=== PATIENT | female | born 1990 | race Caucasian/White ===

== ENCOUNTER 2017-01-14 15:20 | Emergency (ER) ==
[2017-01-14 15:27] VITALS: BP 137/90; TEMP 97.6; BMI 29.2
--- NOTE | 2017-01-14 15:51 | ED.PDOC ---
General ED Provider: Dr. BETSY HERNANDEZ JR Chief Complaint: Tooth Problem Stated Complaint: states she was eating a piece of beef jerky and top left molar broke, feels like food still stuck in it and making whole face hurt. [ End ]45 MINUTES 97.6 79 16 96% 137/90 1010. APPENDIX, X 2. ANX Time Seen by Physician: 15:50 Mode of Arrival: Walk-In Information Source: Patient Exam Limitations: No limitations Primary Care Provider: ABHAY ROMANO Nursing and Triage Documentation Reviewed and Agree: No Review of Systems - Review Of Systems Constitutional: Reports: Malaise Eyes: Reports: No symptoms Ears, Nose, Mouth, Throat: Reports: Mouth pain Respiratory: Reports: No symptoms Cardiac: Reports: No symptoms GI: Reports: No symptoms : Reports: No symptoms Musculoskeletal: Reports: No symptoms Skin: Reports: No symptoms Neurological: Reports: No symptoms Endocrine: Reports: No symptoms Hematologic/Lymphatic: Reports: No symptoms All Other Systems: Other Past Medical History - Past Medical History Endocrine: Reports: None Cardiovascular: Reports: None Respiratory: Reports: None Hematological: Reports: None Gastrointestinal: Reports: None Genitourinary: Reports: None Neuro/Psych: Reports: Anxiety Musculoskeletal: Reports: None Cancer: Reports: None Last Menstrual Period: last week - Surgical History General Surgical History: Reports: None, , Appendectomy - Family History Family History: Reports: Unknown - Social History Smoking Status: Former smoker Hx Substance Use: No Alcohol Screening: None Physical Exam - Physical Exam Appearance: Ill-appearing Ill-appearing: Mild Pain Distress: Moderate Eyes: VIVIANA, EOMI, Conjunctiva clear ENT: Erythema (left upper first molar with deep cavity no visible foreign matter tender gum erythema present jaw slightly tender no LAD) Critical Care Note - Critical Care Note Total Time (mins): 0 Course - Course Vital Signs: Temp Pulse Resp BP Pulse Ox 01/14/17 15:20 97.6 F 79 16 137/90 96 Departure - Departure Time of Disposition: 16:05 Disposition: HOME SELF-CARE Discharge Problem: Toothache, Dental caries Instructions: Toothache (ED), Acute Dental Trauma (ED) Condition: Fair Pt referred to PMD for follow-up: Yes Additional Instructions: Aleve for dental pain 2 twice a day [place] for pain not relieved antibiotic until gone- [place] [facility] follow up with dentist this week Prescriptions: Hydrocodone Bit/Acetaminophen [[place] 5-325] 1 - 2 tab PO Q6HR PRN #12 tablet PRN Reason: pain Naproxen [Naprosyn] 500 mg PO Q12HR PRN #30 tablet PRN Reason: PAIN Penicillin V Potassium 500 mg PO QID #28 tablet Allergies/Adverse Reactions: Allergies latex Adverse Reaction (Verified 01/14/17 15:23) Home Medications: Ambulatory Orders Hydrocodone Bit/Acetaminophen [[place] 5-325] 1 - 2 tab PO Q6HR PRN #12 tablet 11/27 Naproxen [Naprosyn] 500 mg PO Q12HR PRN #30 tablet 01/14/17 Penicillin V Potassium 500 mg PO QID #28 tablet 01/14/17
[2017-01-14] MEDS ORDERED: NORCO 5-325 PO STA (16:01)
== END 2017-01-14 16:18 | disposition home or self-care (01) ==
LOC: ED 15:20
DX: S02.5XXA Fracture of tooth (traumatic), initial encounter for closed fracture (principal); K08.89 Other specified disorders of teeth and supporting structures; K02.7 Dental root caries
CPT/HCPCS: 99282

== ENCOUNTER 2017-01-15 15:40 | Outpatient (CLI) ==
[2017-01-14 15:27] VITALS: BMI 29.2
[2017-01-15 18:02] LABS: ALBUMIN/GLOBULIN RATIO 1.25; BILIRUBIN,TOTAL 0.24 mg/dL (0.00-1.20); BUN/CREATININE RATIO 10.12; CALCIUM 9.3 mg/dL (8.2-10.2); CHOL/HDL RATIO 6.6 (4.5-5.5); CREATININE 0.79 mg/dL (0.60-1.30); TOTAL PROTEIN 7.2 g/dL (6.4-8.2)
== END 2017-01-15 15:41 | disposition home or self-care (01) ==
LOC: LAB 15:40
PROVIDERS: ATTEND Nurse Practitioner Family
DX: E75.6 Lipid storage disorder, unspecified (principal); F31.9 Bipolar disorder, unspecified; F32.9 Major depressive disorder, single episode, unspecified
CPT/HCPCS: 36415; 80053; 80061

== ENCOUNTER 2017-02-16 18:08 | Emergency (ER) ==
[2017-02-16 18:17] VITALS: BP 108/72; TEMP 98.4; BMI 29.4
--- NOTE | 2017-02-16 18:26 | ED.PDOC ---
General ED Provider: Dr. BETSY HERNANDEZ JR Chief Complaint: Wound Check Stated Complaint: two lesions one on left volar forearm tewder 5mm. one on right medial thigh 2cm tender nodule wihtout fluctuance with surrounding ecchymoses(has squeezed matter out of it Time Seen by Physician: 18:25 Mode of Arrival: Walk-In Information Source: Patient Exam Limitations: No limitations Primary Care Provider: ABHAY ROMANO Nursing and Triage Documentation Reviewed and Agree: No Review of Systems - Review Of Systems Constitutional: Reports: No symptoms Eyes: Reports: No symptoms Ears, Nose, Mouth, Throat: Reports: No symptoms Respiratory: Reports: No symptoms Cardiac: Reports: No symptoms GI: Reports: No symptoms : Reports: No symptoms Musculoskeletal: Reports: No symptoms Skin: Reports: Lesions, Lumps Neurological: Reports: No symptoms Endocrine: Reports: No symptoms Hematologic/Lymphatic: Reports: No symptoms All Other Systems: Other Past Medical History - Past Medical History Endocrine: Reports: None Cardiovascular: Reports: None Respiratory: Reports: None Hematological: Reports: None Gastrointestinal: Reports: None Genitourinary: Reports: None Neuro/Psych: Reports: Anxiety Musculoskeletal: Reports: None Cancer: Reports: None Last Menstrual Period: 1 week - Surgical History General Surgical History: Reports: None, , Appendectomy - Family History Family History: Reports: Unknown - Social History Smoking Status: Current every day smoker, Light tobacco smoker Hx Substance Use: No Alcohol Screening: None Physical Exam - Physical Exam Appearance: Well-appearing Pain Distress: Mild Skin: Warm, Dry, Normal color (lesions as noted tender right leg with 1cm firm subcut nodule no fluctuance on palpation) Neurological: Sensation intact, Motor intact, Reflexes intact, Cranial nerves intact, Alert, Oriented Psychiatric: Affect appropriate, Mood appropriate Critical Care Note - Critical Care Note Total Time (mins): 0 Course - Course Vital Signs: Temp Pulse Resp BP Pulse Ox 02/16/17 18:08 98.4 F 79 20 108/72 97 Departure - Departure Time of Disposition: 18:25 Disposition: HOME SELF-CARE Discharge Problem: Cellulitis and abscess of upper arm and forearm Cellulitis Qualifiers: Site of cellulitis: extremity Site of cellulitis of extremity: lower extremity Laterality: right Qualifier Code: (L03.115) Cellulitis of right lower limb Instructions: Cellulitis (ED) Condition: Good Pt referred to PMD for follow-up: Yes Additional Instructions: antibiotic until gone recheck if not improving within 2-3 days warm soaks 4-6 times a day Prescriptions: Sulfamethoxazole/Trimethoprim [Bactrim Ds Tablet] 1 tab PO Q12HR #20 tablet Allergies/Adverse Reactions: Allergies latex Adverse Reaction (Verified 02/16/17 18:17) Home Medications: Ambulatory Orders Sulfamethoxazole/Trimethoprim [Bactrim Ds Tablet] 1 tab PO Q12HR #20 tablet 02/26
== END 2017-02-16 18:40 | disposition home or self-care (01) ==
LOC: ED 18:08
DX: L03.115 Cellulitis of right lower limb (principal); L02.414 Cutaneous abscess of left upper limb; L03.114 Cellulitis of left upper limb; F17.210 Nicotine dependence, cigarettes, uncomplicated
CPT/HCPCS: 99282

== ENCOUNTER 2017-02-17 23:51 | Emergency (ER) ==
[2017-02-18 00:06] VITALS: BP 128/87; TEMP 99.9; BMI 29.5
[2017-02-18] MEDS ORDERED: LIDOCAINE 1 % AMP 5 ML (SUTURES) SUBCUT STA (00:20)
[2017-02-18] MEDS ORDERED: CLEOCIN 600 MG in SODIUM CHLORIDE 100 ML IV STA (00:22)
[2017-02-18] MEDS ORDERED: CLEOCIN ONE ×2 (00:25→00:45)
[2017-02-18] MEDS ORDERED: MORPHINE 2 MG/ML SYRINGE IVP STA (00:37)
[2017-02-18] MEDS ORDERED: ZOFRAN 4 MG/2 ML IVP STA (00:37)
--- NOTE | 2017-02-18 00:40 | ED.PDOC ---
General ED Provider: Dr. ALENA LI-ER Chief Complaint: Cellulitis Stated Complaint: marlee got this lump on my forearm--i have a history of mrsa Time Seen by Physician: 23:55 Mode of Arrival: Walk-In Information Source: Patient Exam Limitations: No limitations Primary Care Provider: ABHAY ROMANO Nursing and Triage Documentation Reviewed and Agree: Yes Skin Complaint Exam - Skin/Soft Tissue Complaint/Exam Onset/Duration: 2 dasy Symptoms Are: Still present Timing: Constant Initial Severity: Mild Current Severity: Moderate Location: left forearm Character: Reports: Redness, Swelling, Raised, Painful Aggravating: Reports: None Alleviating: Reports: None Associated Signs and Symptoms: Reports: Tenderness, Red streaks. 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 Related Surgical History: Reports: None Recent Exposure to Others w/Similar Symptoms: No Skin Findings: Present: Erythema, Induration Joint Tenderness Present: No Differential Diagnoses: Abscess Review of Systems - Review Of Systems Constitutional: Reports: No symptoms Eyes: Reports: No symptoms Ears, Nose, Mouth, Throat: Reports: No symptoms Respiratory: Reports: No symptoms Cardiac: Reports: No symptoms GI: Reports: No symptoms : Reports: No symptoms Musculoskeletal: Reports: No symptoms Skin: Reports: Lumps Neurological: Reports: No symptoms Endocrine: Reports: No symptoms Hematologic/Lymphatic: Reports: No symptoms All Other Systems: Reviewed and Negative Past Medical History - Past Medical History Previously Healthy: Yes Endocrine: Reports: None Cardiovascular: Reports: None Respiratory: Reports: None Hematological: Reports: None Gastrointestinal: Reports: None Genitourinary: Reports: None Neuro/Psych: Reports: Anxiety Musculoskeletal: Reports: None Cancer: Reports: None Last Menstrual Period: 2 weeks ago - Surgical History General Surgical History: Reports: None, , Appendectomy - Family History Family History: Reports: Unknown - Social History Smoking Status: Current every day smoker, Light tobacco smoker Hx Substance Use: No Alcohol Screening: None - Immunizations Tetanus Shot up to Date: Yes Physical Exam - Physical Exam Appearance: Well-appearing, No pain distress, Well-nourished Pain Distress: Mild Eyes: VIVIANA ENT: Ears normal, Nose normal, Oropharynx normal Neck: Supple Respiratory: Airway patent Cardiovascular: RRR GI/: Soft Musculoskeletal: Normal strength, ROM intact, No edema, No calf tenderness Skin: Warm, Dry, Normal color Neurological: Sensation intact, Motor intact, Reflexes intact, Cranial nerves intact, Alert, Oriented Psychiatric: Affect appropriate, Mood appropriate Procedures - Incision and Drainage Site: left forearm Instrument Used: 11 Blade I & D Procedure: Yes: Betadine Prep, Sterile dressing applied, Packing placed Lidocaine Used: Yes Type of Drainage: Present: Pus, Blood Irrigated: No Progress: using sterile technique this 2cm area of induration and erythyema was opened using foreceps after 1cm superficial incision was placed over the lesion..2cc of pustular drainage was expressed and 4cc of iodoform gauze packing was placed- -she tolerated it well.. Re-Evaluation - Re-Evaluation Time of Re-Evaluation: 00:44 Status: Improved Vital Signs Stable: Yes Pain Level: 1 Appearance: NAD Lungs: Clear Skin: Warm and Dry Neuro: Alert and Oriented X3 CV: RRR Critical Care Note - Critical Care Note Total Time (mins): 0 Course - Course Orders, Labs, Meds: Orders Category Date Time Status ED IV/MEDIPORT/POWERPORT .ONCE EMERGENCY 02/18/17 00:22 Active 0.9 % Sodium Chloride [Saline Flush] MEDS 02/18/17 00:22 Ordered 1 syr IVF PRN PRN Clindamycin Phosphate Inj [Cleocin] MEDS 02/18/17 00:25 Discontinued 300 mg .ROUTE .STK-MED ONE Clindamycin Phosphate Inj [Cleocin] 600 mg MEDS 02/18/17 00:22 Active 0.9 % Sodium Chloride [Sodium Chloride] 100 ml IV ONCE Lidocaine HCl/Pf [Lidocaine 1 % Amp 5 ml (Sutures)] MEDS 02/18/17 00:20 Discontinued 5 ml SUBCUT ONCE STA Morphine Sulfate [Morphine 2 mg/ml Syringe] MEDS 02/18/17 00:37 Discontinued 2 mg IVP ONCE STA Ondansetron HCl/Pf [Zofran 4 mg/2 ml] MEDS 02/18/17 00:37 Discontinued 4 mg IVP ONCE STA Medications Generic Name Dose Route Start Last Admin Trade Name Freq PRN Reason Stop Dose Admin Clindamycin Phosphate 600 mg/ 104 mls @ 100 mls/hr 02/18/17 00:22 Sodium Chloride IV 02/18/17 01:24 ONCE STA Sodium Chloride 1 syr 02/18/17 00:22 Saline Flush IVF PRN PRN To flush IV Discontinued Medications Generic Name Dose Route Start Last Admin Trade Name Freq PRN Reason Stop Dose Admin Lidocaine HCl 5 ml 02/18/17 00:20 Lidocaine 1 % Amp 5 Ml (Sutures) SUBCUT 02/18/17 00:21 ONCE STA Morphine Sulfate 2 mg 02/18/17 00:37 Morphine 2 Mg/Ml Syringe IVP 02/18/17 00:38 ONCE STA Ondansetron HCl 4 mg 02/18/17 00:37 Zofran 4 Mg/2 Ml IVP 02/18/17 00:38 ONCE STA Vital Signs: Temp Pulse Resp BP Pulse Ox 02/17/17 23:51 99.9 F H 93 H 20 128/87 97 Departure - Departure Time of Disposition: 00:44 Disposition: HOME SELF-CARE Discharge Problem: Cellulitis and abscess of upper arm and forearm Instructions: Abscess (ED) Condition: Good Pt referred to PMD for follow-up: Yes Additional Instructions: norco 5mg q 4hrs prn pain #6---stop bactrim --clindamycin 150mg tid x 7days-- see me in the e.d. tonight to remove/advance the packing Allergies/Adverse Reactions: Allergies latex Adverse Reaction (Verified 02/18/17 00:06) Home Medications: Ambulatory Orders Sulfamethoxazole/Trimethoprim [Bactrim Ds Tablet] 1 tab PO Q12HR #20 tablet 02/26 Disposition Discussed With: Patient
== END 2017-02-18 02:10 | disposition home or self-care (01) ==
LOC: ED 23:51
DX: L02.414 Cutaneous abscess of left upper limb (principal); L03.114 Cellulitis of left upper limb; Z86.14 Personal history of Methicillin resistant Staphylococcus aureus infection; F17.210 Nicotine dependence, cigarettes, uncomplicated; Z98.890 Other specified postprocedural states; Z48.01 Encounter for change or removal of surgical wound dressing
CPT/HCPCS: 87070; 87186; 96365; 96375; 99282; 99283

== ENCOUNTER 2017-02-18 19:13 | Emergency (ER) ==
[2017-02-18 19:14] VITALS: BMI 29.5
[2017-02-18 19:21] VITALS: BP 120/77; TEMP 98.5
--- NOTE | 2017-02-18 19:30 | ED.PDOC ---
General ED Provider: Dr. ALENA LI-ER Chief Complaint: Wound Check Stated Complaint: i had an abscess drained last night=---it feels better now Time Seen by Physician: 19:28 Mode of Arrival: Walk-In Information Source: Patient, Family Exam Limitations: No limitations Primary Care Provider: ABHAY ROMANO Nursing and Triage Documentation Reviewed and Agree: Yes Skin Complaint Exam - Skin/Soft Tissue Complaint/Exam Onset/Duration: 3 days Symptoms Are: Still present Timing: Constant Initial Severity: Mild Current Severity: Mild Location: left forearm Character: Reports: Redness, Swelling, Raised, Painful Aggravating: Reports: Touch Alleviating: Reports: None Associated Signs and Symptoms: Reports: Drainage, Tenderness. 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 Related Surgical History: Reports: None Recent Exposure to Others w/Similar Symptoms: No Skin Findings: Present: Induration, Fluctuant mass Joint Tenderness Present: No Differential Diagnoses: Abscess Review of Systems - Review Of Systems Constitutional: Reports: No symptoms Eyes: Reports: No symptoms Ears, Nose, Mouth, Throat: Reports: No symptoms Respiratory: Reports: No symptoms Cardiac: Reports: No symptoms GI: Reports: No symptoms : Reports: No symptoms Musculoskeletal: Reports: No symptoms Skin: Reports: Lumps Neurological: Reports: No symptoms Endocrine: Reports: No symptoms Hematologic/Lymphatic: Reports: No symptoms All Other Systems: Reviewed and Negative Past Medical History - Past Medical History Previously Healthy: Yes Endocrine: Reports: None Cardiovascular: Reports: None Respiratory: Reports: None Hematological: Reports: None Gastrointestinal: Reports: None Genitourinary: Reports: None Neuro/Psych: Reports: Anxiety Musculoskeletal: Reports: None Cancer: Reports: None Last Menstrual Period: 2 weeks - Surgical History General Surgical History: Reports: None, , Appendectomy - Family History Family History: Reports: Unknown - Social History Smoking Status: Current every day smoker, Light tobacco smoker Hx Substance Use: No Alcohol Screening: None - Immunizations Tetanus Shot up to Date: Yes Physical Exam - Physical Exam Appearance: Well-appearing, No pain distress, Well-nourished Eyes: VIVIANA, EOMI, Conjunctiva clear ENT: Ears normal, Nose normal, Oropharynx normal Neck: Supple Respiratory: Airway patent, Breath sounds clear, Breath sounds equal, Respirations nonlabored Cardiovascular: RRR, Pulses normal, No rub, No murmur GI/: Soft, Nontender, No masses, Bowel sounds normal, No Organomegaly Musculoskeletal: Normal strength, ROM intact, No edema, No calf tenderness Skin: Warm, Dry, Normal color Neurological: Sensation intact, Motor intact, Reflexes intact, Cranial nerves intact, Alert, Oriented Psychiatric: Affect appropriate, Mood appropriate Procedures - Incision and Drainage Site: left foream Type of Drainage: Present: Pus Progress: we removed the packing today--some pustular drainage was expressed--the wound was covered with sterile dressing Critical Care Note - Critical Care Note Total Time (mins): 0 Course - Course Vital Signs: Temp Pulse Resp BP Pulse Ox 02/18/17 19:15 98.5 F 77 20 120/77 96 Departure - Departure Time of Disposition: 19:30 Disposition: HOME SELF-CARE Discharge Problem: Cellulitis and abscess of upper arm and forearm Instructions: Abscess (ED), Wound Infection (ED), Acute Wounds (ED) Condition: Good Pt referred to PMD for follow-up: Yes Additional Instructions: continue clindamycin--wash wound twice daily with soap and water and cover with antb ointment--cover as long as draining Allergies/Adverse Reactions: Allergies latex Adverse Reaction (Verified 02/18/17 19:15) Home Medications: Ambulatory Orders Hydrocodone Bit/Acetaminophen [[place] 5-325] 5 - 325 mg PO Q4H PRN 02/18/17 Disposition Discussed With: Patient, Family
== END 2017-02-18 19:41 | disposition home or self-care (01) ==
LOC: ED 19:13
DX: L02.414 Cutaneous abscess of left upper limb (principal); L03.114 Cellulitis of left upper limb; Z86.14 Personal history of Methicillin resistant Staphylococcus aureus infection; F17.210 Nicotine dependence, cigarettes, uncomplicated; Z98.890 Other specified postprocedural states; Z48.01 Encounter for change or removal of surgical wound dressing
CPT/HCPCS: 99282

== ENCOUNTER 2017-03-05 11:13 | Outpatient (CLI) ==
[2017-03-05 11:36] LABS: BASOPHILS % (AUTO) 0.2 % (0.0-3.0); EOSINOPHILS % (AUTO) 0.4 % (0.0-7.0); HEMATOCRIT 42.7 % (37.0-47.0); HEMOGLOBIN 14.5 g/dl (12.0-16.0); IMMATURE GRANULOCYTE % (AUTO) 0.4 % (0.0-5.0); LYMPHOCYTES % (AUTO) 24.4 (10.0-50.0); MEAN CORPUSCULAR HEMOGLOBIN 29.5 pg (27.0-31.0); MONOCYTES # (AUTO) 0.5 K/uL (0.4-2.0); MONOCYTES % (AUTO) 6.7 (0-10); NEUTROPHILS # (AUTO) 5.5 K/ul (2.0-6.9); NEUTROPHILS % (AUTO) 67.9; PLATELET COUNT 231 10^3/uL (140-440); RED BLOOD COUNT 4.91 10^6/ul (4.20-5.40); WHITE BLOOD COUNT 8.06 K/ul (4.6-10.2)
[2017-03-05 11:39] LABS: BILIRUBIN,URINE Negative (NEGATIVE); KETONES,URINE Negative (NEGATIVE); LEUKOCYTE ESTERASE ,URINE 1+ (NEGATIVE); NITRITE,URINE Positive (NEGATIVE); PROTEIN,URINE Negative (NEGATIVE); URINE, BLOOD Negative (NEGATIVE)
[2017-03-05 11:52] LABS: ADD URINE MICROSCOPIC YES
[2017-03-05 11:57] LABS: BACTERIA,URINE 2+ (NOT PRESENT)
[2017-03-05 12:06] LABS: COCAIN SCREEN,URINE POSITIVE (NEGATIVE)
[2017-03-05 12:18] LABS: ALBUMIN 3.8 g/dL (3.4-5.0); ALBUMIN/GLOBULIN RATIO 1.03; ANION GAP 14.9; BILIRUBIN,TOTAL 0.42 mg/dL (0.00-1.20); BUN/CREATININE RATIO 7.22; CALCIUM 9.3 mg/dL (8.2-10.2); CHOL/HDL RATIO 4.9 (4.5-5.5); CREATININE 0.83 mg/dL (0.60-1.30); POTASSIUM 3.9 mmol/L (3.5-5.10); TOTAL PROTEIN 7.5 g/dL (6.4-8.2)
== END 2017-03-05 11:14 | disposition home or self-care (01) ==
LOC: LAB 11:13
PROVIDERS: ATTEND Family Medicine
DX: Z00.00 Encounter for general adult medical examination without abnormal findings (principal); E78.00 Pure hypercholesterolemia, unspecified; E78.1 Pure hyperglyceridemia; R74.0 Nonspecific elevation of levels of transaminase and lactic acid dehydrogenase [LDH]; Z87.440 Personal history of urinary (tract) infections
CPT/HCPCS: 36415; 80053; 80061; 80306; 81001; 84439; 84443; 85025

== ENCOUNTER 2017-05-18 22:10 | Emergency (ER) ==
[2017-05-18] MEDS ORDERED: ZOFRAN 4 MG/2 ML IM STA (22:15)
[2017-05-18] MEDS ORDERED: DILAUDID 2 MG/ML SYRINGE IM STA (22:15)
[2017-05-18 22:24] VITALS: BP 116/75; TEMP 98.6; BMI 29.3
[2017-05-18 22:29] LABS: BILIRUBIN,URINE Negative (NEGATIVE); KETONES,URINE Negative (NEGATIVE); LEUKOCYTE ESTERASE ,URINE Negative (NEGATIVE); NITRITE,URINE Negative (NEGATIVE); PH,URINE 6.5 (5-9); PROTEIN,URINE Negative (NEGATIVE); URINE, BLOOD Negative (NEGATIVE)
[2017-05-18 22:32] LABS: ADD URINE MICROSCOPIC NO; URINE PREGNANCY INTERNAL QC INTERNAL QC VALID
[2017-05-18 22:42] LABS: BASOPHILS % (AUTO) 0.2 % (0.0-3.0); EOSINOPHILS # (AUTO) 0.1 K/ul (0.0-0.7); EOSINOPHILS % (AUTO) 0.6 % (0.0-7.0); HEMATOCRIT 39.5 % (37.0-47.0); HEMOGLOBIN 13.8 g/dl (12.0-16.0); IMMATURE GRANULOCYTE % (AUTO) 0.2 % (0.0-5.0); LYMPHOCYTES # (AUTO) 2.8 K/uL (0.60-3.4); MEAN CORPUSCULAR HEMOGLOBIN 30.9 pg (27.0-31.0); MEAN CORPUSCULAR HGB CONC 34.9 (31.8-35.4); MEAN CORPUSCULAR VOLUME 88.4 fl (81.0-99.0); MONOCYTES # (AUTO) 0.8 K/uL (0.4-2.0); MONOCYTES % (AUTO) 7.2 (0-10); NEUTROPHILS # (AUTO) 7.2 K/ul (2.0-6.9); NEUTROPHILS % (AUTO) 65.8; PLATELET COUNT 216 10^3/uL (140-440); RED BLOOD COUNT 4.47 10^6/ul (4.20-5.40); WHITE BLOOD COUNT 10.85 K/ul (4.6-10.2)
[2017-05-18 23:01] LABS: ALBUMIN 3.7 g/dL (3.4-5.0); ALBUMIN/GLOBULIN RATIO 0.97; ANION GAP 13.7; BILIRUBIN,TOTAL 0.29 mg/dL (0.00-1.20); BUN/CREATININE RATIO 14.28; CALCIUM 9.6 mg/dL (8.2-10.2); CREATININE 0.84 mg/dL (0.60-1.30); POTASSIUM 3.7 mmol/L (3.5-5.10); TOTAL PROTEIN 7.5 g/dL (6.4-8.2)
[2017-05-18 23:16] LABS: ERYTHROCYTE SEDIMENTATION RATE 11 mm/hr (0-20); ESR INTERNAL QC INTERNAL QC VALID
--- NOTE | 2017-05-18 23:33 | CT ---
EXAM: CT of the abdomen and pelvis without contrast. HISTORY: Right upper quadrant pain. Surgical history includes appendectomy. PROCEDURE: Contiguous axial CT images of the abdomen and pelvis without contrast with coronal and sa gittal reformats. FINDINGS: The liver, gallbladder, pancreas, spleen and adrenal glands are normal in appearance. The re are multiple nonobstructive calcifications in both kidneys measuring up to 0.3 cm. No hydronephro sis. The ureters are incompletely visualized. The abdominal aorta is normal in appearance. There i s diverticulosis of the colon with no evidence of diverticulitis. No free air in the abdomen or pelv is. The bladder is adequately filled with no abnormality identified. The uterus is unremarkable. Th ere is minimal free fluid in the cul-de-sac. The bones and soft tissues are unremarkable. Impression: Nonobstructive bilateral nephrolithiasis as described. Minimal free fluid in the cul-de-sac. Diverticulosis of the colon with no evidence of diverticulitis.
--- NOTE | 2017-05-18 23:40 | ED.PDOC ---
General ED Provider: Dr. ALENA LI-ER Chief Complaint: Abdominal Pain Stated Complaint: im hurting and i think its my gb--i ate some fatty food and this started Time Seen by Physician: 22:30 Mode of Arrival: Walk-In Information Source: Patient Exam Limitations: No limitations Primary Care Provider: JOSE DAVID BREAUX Nursing and Triage Documentation Reviewed and Agree: Yes GI Complaint Exam - Abdominal Pain Complaint/Exam Onset: Gradual Duration: several hours Symptoms Are: Still present Timing: Constant Initial Severity: Mild Current Severity: Mild Location of Pain: Discrete, RUQ Radiates To: Reports: Back Character: Reports: Dull, Aching, Cramping Aggravating: Reports: Food Alleviating: Reports: Spontaneous resolution Associated Signs and Symptoms: Reports: Nausea. Denies: Diaphoresis, Fever, Cough, Chest pain, Dizziness, Back pain, Constipation, Blood in stool, Dysuria, Urinary frequency, Decreased urine output, Decreased appetite, Vaginal bleeding , Vaginal discharge, Vomiting, Diarrhea, Sore throat, Decreased activity AAA Risk Factors: Reports: None Cardiac Risk Factors: Reports: None Ovarian Torsion Risk Factors: Reports: Reproductive age Surgical Obstruction Risk Factors: Reports: None Related Surgical History: Reports: Appendectomy Patient Rh Status: Unknown Abdominal Findings: Present: None Differential Diagnoses: Constipation, Pancreatitis, GB, PUD, UTI Review of Systems - Review Of Systems Constitutional: Reports: No symptoms Eyes: Reports: Decreased acuity Ears, Nose, Mouth, Throat: Reports: No symptoms Respiratory: Reports: No symptoms Cardiac: Reports: No symptoms GI: Reports: Abdominal pain, Nausea : Reports: No symptoms Musculoskeletal: Reports: No symptoms Skin: Reports: No symptoms Neurological: Reports: No symptoms Endocrine: Reports: No symptoms Hematologic/Lymphatic: Reports: No symptoms All Other Systems: Reviewed and Negative Past Medical History - Past Medical History Previously Healthy: Yes Endocrine: Reports: None Cardiovascular: Reports: None Respiratory: Reports: None Hematological: Reports: None Gastrointestinal: Reports: None Genitourinary: Reports: None Neuro/Psych: Reports: Anxiety Musculoskeletal: Reports: None Cancer: Reports: None Last Menstrual Period: 2 WEEKS - Surgical History General Surgical History: Reports: None, , Appendectomy - Family History Family History: Reports: Unknown - Social History Smoking Status: Current every day smoker Hx Substance Use: No Alcohol Screening: None Lives: With family - Immunizations Tetanus Shot up to Date: Yes Physical Exam - Physical Exam Appearance: Well-appearing, No pain distress, Well-nourished Eyes: VIVIANA, EOMI, Conjunctiva clear ENT: Ears normal, Nose normal, Oropharynx normal Neck: Supple Respiratory: Airway patent Cardiovascular: RRR, Pulses normal, No rub, No murmur GI/: Soft, No masses, Bowel sounds normal, No Organomegaly, Tender Musculoskeletal: Normal strength Skin: Warm Neurological: Sensation intact, Motor intact, Reflexes intact, Cranial nerves intact, Alert, Oriented Psychiatric: Affect appropriate, Mood appropriate Interpretation - Radiology Interpretation Radiology Interpretation By: Radiologist Radiology Results: Negative Exam Interpreted: CT Scan Re-Evaluation - Re-Evaluation Time of Re-Evaluation: 23:41 Status: Improved Vital Signs Stable: Yes Pain Level: 1 Appearance: NAD Lungs: Clear Skin: Warm and Dry Neuro: Alert and Oriented X3 CV: RRR Critical Care Note - Critical Care Note Total Time (mins): 0 Course - Course Hematology/Chemistry: 05/18/17 22:30 05/18/17 22:30 Orders, Labs, Meds: Lab Review 05/18/17 05/18/17 05/18/17 22:20 22:20 22:30 WBC 10.85 H RBC 4.47 Hgb 13.8 Hct 39.5 MCV 88.4 MCH 30.9 MCHC 34.9 RDW Coeff of Jim 12.7 Plt Count 216 Immature Gran % (Auto) 0.2 Neut % (Auto) 65.8 Lymph % (Auto) 26.0 [place] % (Auto) 7.2 Eos % (Auto) 0.6 Baso % (Auto) 0.2 Immature Gran # (Auto) 0.0 Neut # 7.2 H Lymph # 2.8 [place] # 0.8 Eos # 0.1 Baso # 0.0 ESR 11 Sodium Potassium Chloride Carbon Dioxide Anion Gap BUN Creatinine Estimated GFR (MDRD) BUN/Creatinine Ratio Glucose Calcium Total Bilirubin AST ALT Alkaline Phosphatase Total Protein Albumin Globulin Albumin/Globulin Ratio Amylase Lipase Urine Color Yellow Urine Clarity Slightly Urine pH 6.5 Ur Specific [place] 1.025 Urine Protein Negative Urine Glucose (UA) Negative Urine Ketones Negative Urine Blood Negative Urine Nitrite Negative Urine Bilirubin Negative Urine Urobilinogen 0.2 Ur Leukocyte Esterase Negative Urine Test Negative 05/18/17 22:30 WBC RBC Hgb Hct MCV MCH MCHC RDW Coeff of Jim Plt Count Immature Gran % (Auto) Neut % (Auto) Lymph % (Auto) [place] % (Auto) Eos % (Auto) Baso % (Auto) Immature Gran # (Auto) Neut # Lymph # [place] # Eos # Baso # ESR Sodium 137 Potassium 3.7 Chloride 102 Carbon Dioxide 25 Anion Gap 13.7 BUN 12 Creatinine 0.84 Estimated GFR (MDRD) 80.00 BUN/Creatinine Ratio 14.28 Glucose 97 Calcium 9.6 Total Bilirubin 0.29 AST 23 ALT 24 Alkaline Phosphatase 98 Total Protein 7.5 Albumin 3.7 Globulin 3.8 Albumin/Globulin Ratio 0.97 Amylase 76 Lipase 29 Urine Color Urine Clarity Urine pH Ur Specific [place] Urine Protein Urine Glucose (UA) Urine Ketones Urine Blood Urine Nitrite Urine Bilirubin Urine Urobilinogen Ur Leukocyte Esterase Urine Test Orders Category Date Time Status AMYLASE Stat LAB 05/18/17 22:30 Completed CBC W/ AUTO DIFF Stat LAB 05/18/17 22:30 Completed COMPREHENSIVE METABOLIC PANEL Stat LAB 05/18/17 22:30 Completed ESR Stat LAB 05/18/17 22:30 Completed LIPASE Stat LAB 05/18/17 22:30 Completed URINALYSIS C & S IF INDICATED Stat LAB 05/18/17 22:20 Completed URINE Stat LAB 05/18/17 22:20 Completed Hydromorphone HCl/Pf [Dilaudid 2 mg/ml Syringe] MEDS 05/18/17 22:15 Discontinued 2 mg IM ONCE STA Ondansetron HCl/Pf [Zofran 4 mg/2 ml] MEDS 05/18/17 22:15 Discontinued 4 mg IM ONCE STA CT ABDOMEN/PELVIS WO CONTRAST Stat RADS 05/18/17 22:14 Completed Medications Discontinued Medications Generic Name Dose Route Start Last Admin Trade Name Jaimeq PRN Reason Stop Dose Admin Hydromorphone HCl 2 mg 05/18/17 22:15 05/18/17 22:34 Dilaudid 2 Mg/Ml Syringe IM 05/18/17 22:16 2 mg ONCE STA Administration Ondansetron HCl 4 mg 05/18/17 22:15 05/18/17 22:34 Zofran 4 Mg/2 Ml IM 05/18/17 22:16 4 mg ONCE STA Administration Vital Signs: Temp Pulse Resp BP Pulse Ox 05/18/17 22:22 98.6 F 100 H 20 116/75 96 Departure - Departure Time of Disposition: 23:41 Disposition: HOME SELF-CARE Discharge Problem: Abdominal pain Instructions: Abdominal Pain (ED) Condition: Good Pt referred to PMD for follow-up: Yes Additional Instructions: low fat diet--librax q 8hrs prn pain #15--talk to your pcp about gb xrays Allergies/Adverse Reactions: Allergies latex Adverse Reaction (Verified 02/18/17 19:15) Disposition Discussed With: Patient, Family
== END 2017-05-18 23:48 | disposition home or self-care (01) ==
LOC: ED 22:10
DX: R10.11 Right upper quadrant pain (principal); R11.0 Nausea; F17.210 Nicotine dependence, cigarettes, uncomplicated
CPT/HCPCS: 36415; 80053; 81001; 81025; 82150; 83690; 85025; 85651; 96372; 99283

== ENCOUNTER 2017-06-24 07:34 | Emergency (ER) ==
[2017-06-24 07:39] VITALS: BP 109/78; TEMP 98.4; BMI 29.8
[2017-06-24] MEDS ORDERED: BENADRYL IM STA (07:55)
[2017-06-24] MEDS ORDERED: ASPIRIN CHEWABLE PO STA (07:55)
[2017-06-24] MEDS ORDERED: DECADRON 4 MG/ML SDV IM STA (07:55)
[2017-06-24] MEDS ORDERED: ROCEPHIN IM STA (07:56)
[2017-06-24] MEDS ORDERED: LIDOCAINE HCL 1% SDV SUBCUT STA (07:56)
--- NOTE | 2017-06-24 08:01 | ED.PDOC ---
General ED Provider: Dr. NANCY WARREN Chief Complaint: Bite Stated Complaint: spider bite Time Seen by Physician: 07:45 (seen with alicia) Mode of Arrival: Walk-In Information Source: Patient Exam Limitations: No limitations Primary Care Provider: JOSE DAVID BREAUX Nursing and Triage Documentation Reviewed and Agree: Yes Skin Complaint Exam - Skin Rash/Itching Complaint/Exam Onset/Duration: 1 day ago Symptoms Are: Still present Initial Severity: Moderate Current Severity: Moderate Potential Exposures: Reports: Insect bite Aggravating: Reports: None Alleviating: Reports: None Associated Signs and Symptoms: Denies: Difficulty breathing, Fever, Chills Skin Findings: Present: Maculae (large see photo ), Vesicles Differential Diagnoses: Other (spider bite. MRSA) Review of Systems - Review Of Systems Constitutional: Reports: No symptoms Eyes: Reports: No symptoms Ears, Nose, Mouth, Throat: Reports: No symptoms Respiratory: Reports: No symptoms Cardiac: Reports: No symptoms GI: Reports: No symptoms : Reports: No symptoms Musculoskeletal: Reports: No symptoms Skin: Reports: Rash (SEE PHOTO) Neurological: Reports: No symptoms Endocrine: Reports: No symptoms Hematologic/Lymphatic: Reports: No symptoms All Other Systems: Reviewed and Negative Past Medical History - Past Medical History Previously Healthy: Yes Endocrine: Reports: None Cardiovascular: Reports: None Respiratory: Reports: None Hematological: Reports: None Gastrointestinal: Reports: None Genitourinary: Reports: None Neuro/Psych: Reports: Anxiety Musculoskeletal: Reports: None Cancer: Reports: None Last Menstrual Period: end of may - Surgical History General Surgical History: Reports: None, , Appendectomy - Family History Family History: Reports: Unknown - Social History Smoking Status: Current every day smoker Hx Substance Use: No Alcohol Screening: None Physical Exam - Physical Exam Appearance: Well-appearing, No pain distress, Well-nourished Eyes: VIVIANA, EOMI, Conjunctiva clear ENT: Ears normal, Nose normal, Oropharynx normal Respiratory: Airway patent, Breath sounds clear, Breath sounds equal, Respirations nonlabored Cardiovascular: RRR, Pulses normal, No rub, No murmur GI/: Soft, Nontender, No masses, Bowel sounds normal, No Organomegaly Musculoskeletal: Normal strength, ROM intact, No edema, No calf tenderness Skin: Warm, Dry (SEE PHOTOS FOR THE ABDOMINAL RASH ) Neurological: Sensation intact, Motor intact, Reflexes intact, Cranial nerves intact, Alert, Oriented Psychiatric: Affect appropriate, Mood appropriate Critical Care Note - Critical Care Note Total Time (mins): 0 Course - Course Orders, Labs, Meds: Orders Category Date Time Status COMPREHENSIVE METABOLIC PANEL Stat LAB 06/24/17 07:58 Ordered Aspirin [Aspirin Chewable] MEDS 06/24/17 07:55 Stat 81 mg PO ONCE STA Ceftriaxone Sodium [Rocephin] MEDS 06/24/17 07:56 Stat 1 gm IM ONCE STA Dexamethasone 4 mg/ml Inj [Decadron 4 mg/ml Sdv] MEDS 06/24/17 07:55 Stat 4 mg IM ONCE STA Diphenhydramine Inj [Benadryl] MEDS 06/24/17 07:55 Stat 25 mg IM ONCE STA Lidocaine HCl/Pf [Lidocaine HCl 1% Sdv] MEDS 06/24/17 07:56 Stat 5 ml SUBCUT ONCE STA Medications Discontinued Medications Generic Name Dose Route Start Last Admin Trade Name Jaimeq PRN Reason Stop Dose Admin Aspirin 81 mg 06/24/17 07:55 Aspirin Chewable PO 06/24/17 07:56 ONCE STA Ceftriaxone Sodium 1 gm 06/24/17 07:56 Rocephin IM 06/24/17 07:57 ONCE STA Dexamethasone Sodium Phosphate 4 mg 06/24/17 07:55 Decadron 4 Mg/Ml Sdv IM 06/24/17 07:56 ONCE STA Diphenhydramine HCl 25 mg 06/24/17 07:55 Benadryl IM 06/24/17 07:56 ONCE STA Lidocaine HCl 5 ml 06/24/17 07:56 Lidocaine Hcl 1% Sdv SUBCUT 06/24/17 07:57 ONCE STA Vital Signs: Temp Pulse Resp BP Pulse Ox 06/24/17 07:35 98.4 F 130 H 18 109/78 98 Departure - Departure Time of Disposition: 08:01 Disposition: HOME SELF-CARE Discharge Problem: Spider bite allergy, current reaction Qualifiers: Encounter type: initial encounter Instructions: [place] Spider Bite (ED), MRSA (Methicillin-Resistant Staphylococcus Aureus) (ED) Condition: Good Pt referred to PMD for follow-up: Yes Additional Instructions: Please call your Family Physician as soon as possible to schedule a follow-up appointment. Prescriptions: Hydrocodone/Acetaminophen [[place] 10-325 Tablet] 1 each PO Q8HR #12 tablet Sulfamethoxazole/Trimethoprim [Bactrim Ds Tablet] 1 each PO BID 7 Days #14 tablet Allergies/Adverse Reactions: Allergies latex Adverse Reaction (Verified 06/24/17 07:39) Home Medications: Ambulatory Orders Atorvastatin Calcium [Lipitor] 10 mg PO BEDTIME 06/24/17 Gabapentin 300 mg PO BID 06/24/17 Hydrocodone/Acetaminophen [[place] 10-325 Tablet] 1 each PO Q8HR #12 tablet Risperidone [Risperdal] 0.5 mg PO DAILY 06/24/17 Sulfamethoxazole/Trimethoprim [Bactrim Ds Tablet] 1 each PO BID 7 Days #14 tablet 06/24/17 Disposition Discussed With: Patient
[2017-06-24 08:42] LABS: ALBUMIN 3.6 g/dL (3.4-5.0); ALBUMIN/GLOBULIN RATIO 0.86; ANION GAP 13.1; BILIRUBIN,TOTAL 0.78 mg/dL (0.00-1.20); BUN/CREATININE RATIO 13.79; CALCIUM 9.5 mg/dL (8.2-10.2); CREATININE 0.87 mg/dL (0.60-1.30); POTASSIUM 3.1 mmol/L (3.5-5.10); TOTAL PROTEIN 7.8 g/dL (6.4-8.2)
== END 2017-06-24 08:05 | disposition home or self-care (01) ==
LOC: ED 07:34
DX: T63.301A Toxic effect of unspecified spider venom, accidental (unintentional), initial encounter (principal); R21 Rash and other nonspecific skin eruption; F17.210 Nicotine dependence, cigarettes, uncomplicated
CPT/HCPCS: 36415; 80053; 96372; 99283

== ENCOUNTER 2017-06-25 15:50 | Outpatient (CLI) ==
[2017-06-24 07:39] VITALS: BMI 29.8
[2017-06-25 16:11] LABS: BASOPHILS # (AUTO) 0.1 K/uL (0-0.2); BASOPHILS % (AUTO) 0.3 % (0.0-3.0); EOSINOPHILS % (AUTO) 0.2 % (0.0-7.0); HEMATOCRIT 44.5 % (37.0-47.0); HEMOGLOBIN 14.5 g/dl (12.0-16.0); IMMATURE GRANULOCYTE % (AUTO) 0.7 % (0.0-5.0); LYMPHOCYTES # (AUTO) 1.1 K/uL (0.60-3.4); LYMPHOCYTES % (AUTO) 5.7 (10.0-50.0); MEAN CORPUSCULAR HEMOGLOBIN 30.7 pg (27.0-31.0); MEAN CORPUSCULAR HGB CONC 32.6 (31.8-35.4); MEAN CORPUSCULAR VOLUME 94.1 fl (81.0-99.0); MONOCYTES # (AUTO) 1.1 K/uL (0.4-2.0); MONOCYTES % (AUTO) 5.6 (0-10); NEUTROPHILS # (AUTO) 17.1 K/ul (2.0-6.9); NEUTROPHILS % (AUTO) 87.5; PLATELET COUNT 245 10^3/uL (140-440); RED BLOOD COUNT 4.73 10^6/ul (4.20-5.40); WHITE BLOOD COUNT 19.53 K/ul (4.6-10.2)
== END 2017-06-25 15:51 | disposition home or self-care (01) ==
LOC: NONPT 15:50
PROVIDERS: ATTEND Family Medicine
DX: T63.331A Toxic effect of venom of brown recluse spider, accidental (unintentional), initial encounter (principal)
CPT/HCPCS: 85025

== ENCOUNTER 2017-06-26 08:20 | Emergency (ER) ==
[2017-06-26 08:35] VITALS: BP 140/86; TEMP 97.8; BMI 29.7
--- NOTE | 2017-06-26 08:44 | ED.PDOC ---
General ED Provider: Dr. BETSY HERNANDEZ JR Chief Complaint: Bite Stated Complaint: woke up and noted poss spider bite to abd--area started to drain and reddened--seen in er 2 days ago and started on bactrim--did follow up with family md and told her she had MRSA also infection was "bad" due to high labs--has redness to rt thumb-pt indicates that thinks lab hit nerve in her arm- causing her numbness to arm--her md told her he would do mri [End]97.8 96 20 98 % 140/86 12/20. : 06/24/17 RAFATI: Arcadio Jackman Spider Bite (ED), MRSA ( Methicillin-Resistant Staphylococcus Aureus) Family Physician as soon as possible [[place] 10-325 Tablet] [Bactrim Ds Tablet] [Lipitor] [[place] 10-325 Tablet][Bactrim Ds Tablet] Time Seen by Physician: 08:51 Mode of Arrival: Walk-In Information Source: Patient Exam Limitations: No limitations Primary Care Provider: JOSE DAVID BREAUX Nursing and Triage Documentation Reviewed and Agree: No Review of Systems - Review Of Systems Constitutional: Reports: No symptoms Eyes: Reports: No symptoms Ears, Nose, Mouth, Throat: Reports: No symptoms Respiratory: Reports: No symptoms Cardiac: Reports: No symptoms GI: Reports: No symptoms : Reports: No symptoms Musculoskeletal: Reports: No symptoms Skin: Reports: Lesions Neurological: Reports: No symptoms Endocrine: Reports: No symptoms Hematologic/Lymphatic: Reports: No symptoms All Other Systems: Other Past Medical History - Past Medical History Previously Healthy: Yes Endocrine: Reports: Dyslipidemia Cardiovascular: Reports: None Respiratory: Reports: None Hematological: Reports: None Gastrointestinal: Reports: None Genitourinary: Reports: None Neuro/Psych: Reports: Anxiety, Bipolar Disorder Musculoskeletal: Reports: None Cancer: Reports: None Last Menstrual Period: end may - Surgical History General Surgical History: Reports: None, Tubal ligation, (X3), Appendectomy - Family History Family History: Reports: Unknown - Social History Smoking Status: Current every day smoker Hx Substance Use: No Alcohol Screening: None Physical Exam - Physical Exam Appearance: Well-appearing, Obese Pain Distress: Mild Skin: Warm, Dry, Normal color (LESION THUMB HAS DECREASE(HAS BEEN CHEWING ON THUMB)) Critical Care Note - Critical Care Note Total Time (mins): 0 Course - Course Orders, Labs, Meds: Orders Category Date Time Status Ceftriaxone Sodium [Rocephin] MEDS 06/26/17 08:51 Discontinued 1 gm IM ONCE STA Lidocaine HCl/Pf [Lidocaine HCl 1% Sdv] MEDS 06/26/17 08:56 Discontinued 5 ml SUBCUT ONCE STA Medications Discontinued Medications Generic Name Dose Route Start Last Admin Trade Name Alexi GARCIA Reason Stop Dose Admin Ceftriaxone Sodium 1 gm 06/26/17 08:51 06/26/17 09:10 Rocephin IM 06/26/17 08:52 1 gm ONCE STA Administration Lidocaine HCl 5 ml 06/26/17 08:56 06/26/17 09:11 Lidocaine Hcl 1% Sdv SUBCUT 06/26/17 08:57 5 ml ONCE STA Administration Vital Signs: Temp Pulse Resp BP Pulse Ox 06/26/17 08:20 97.8 F 96 H 20 140/86 98 Departure - Departure Time of Disposition: 09:01 Disposition: HOME SELF-CARE Discharge Problem: Cellulitis and abscess of finger, unspecified, Cellulitis of thumb, right Instructions: Thumb Sucking (GEN), Cellulitis (ED) Condition: Good Pt referred to PMD for follow-up: Yes Additional Instructions: may have repeat injecton of antibiotic follow up PMD as scheduled antibiotic ointment to hand twice a day stretch fingers with opposite hand follow up with PMD follow improvement of abscess Allergies/Adverse Reactions: Allergies latex Adverse Reaction (Verified 06/26/17 21:15) Home Medications: Ambulatory Orders Atorvastatin Calcium [Lipitor] 10 mg PO BEDTIME 06/24/17 Gabapentin 300 mg PO BID 06/24/17 Hydrocodone/Acetaminophen [[place] 10-325 Tablet] 1 each PO Q8HR #12 tablet Risperidone [Risperdal] 0.5 mg PO DAILY 06/24/17 Sulfamethoxazole/Trimethoprim [Bactrim Ds Tablet] 1 each PO BID 7 Days #14 tablet 06/24/17
[2017-06-26] MEDS ORDERED: ROCEPHIN IM STA (08:51)
[2017-06-26] MEDS ORDERED: LIDOCAINE HCL 1% SDV SUBCUT STA (08:56)
== END 2017-06-26 09:30 | disposition home or self-care (01) ==
LOC: ED 08:20
DX: L03.011 Cellulitis of right finger (principal); T63.331D Toxic effect of venom of brown recluse spider, accidental (unintentional), subsequent encounter; S31.159D Open bite of abdominal wall, unspecified quadrant without penetration into peritoneal cavity, subsequent encounter; A49.02 Methicillin resistant Staphylococcus aureus infection, unspecified site; F17.210 Nicotine dependence, cigarettes, uncomplicated
CPT/HCPCS: 96372; 99282

== ENCOUNTER 2017-06-26 21:06 | Emergency (ER) ==
[2017-06-26 21:17] VITALS: BP 122/89; TEMP 98.6
--- NOTE | 2017-06-26 22:01 | ED.PDOC ---
General ED Provider: Dr. FELIPE CAT Chief Complaint: Hand Pain/Injury Stated Complaint: Patient was seen this morning for follow up of abdominal cellulitis which seems to be responding to Bactrim. She return with complaint of right Thumb hangnail that was swollen and erupted with drainage. Now it is healing. Also state she cannot folly extend the 3rd 4th and 5th digits fully but has good hand professor of biological sciences. Was seen by PCP3 days ago for the same complaint but did not address it Time Seen by Physician: 21:15 Mode of Arrival: Walk-In Information Source: Patient Exam Limitations: No limitations Primary Care Provider: JOSE DAVID BREAUX Nursing and Triage Documentation Reviewed and Agree: Yes Skin Complaint Exam - Skin/Soft Tissue Complaint/Exam Onset/Duration: 1 week Symptoms Are: Still present Timing: Constant Initial Severity: Moderate Current Severity: Moderate Location: right thumb Character: Reports: Redness, Painful Alleviating: Reports: None Associated Signs and Symptoms: Reports: Drainage (was daining yesterday but now is dry. ), Tenderness. 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 Related Surgical History: Reports: None Recent Exposure to Others w/Similar Symptoms: No Skin Findings: Present: Erythema (abdomaen and right thumb.) Joint Tenderness Present: No Differential Diagnoses: Abscess, Cellulitis Review of Systems - Review Of Systems Constitutional: Reports: No symptoms Eyes: Reports: No symptoms Ears, Nose, Mouth, Throat: Reports: No symptoms Respiratory: Reports: No symptoms Cardiac: Reports: No symptoms GI: Reports: No symptoms : Reports: No symptoms Musculoskeletal: Reports: Joint pain Skin: Reports: Rash Neurological: Reports: Anxiety Endocrine: Reports: No symptoms Hematologic/Lymphatic: Reports: No symptoms All Other Systems: Reviewed and Negative Past Medical History - Past Medical History Previously Healthy: Yes Endocrine: Reports: Dyslipidemia Cardiovascular: Reports: None Respiratory: Reports: None Hematological: Reports: None Gastrointestinal: Reports: None Genitourinary: Reports: None Neuro/Psych: Reports: Anxiety, Depression, Bipolar Disorder Musculoskeletal: Reports: None Cancer: Reports: None Last Menstrual Period: END OF MAY Other Pertinent Past Medical History: MRSA - Surgical History General Surgical History: Reports: Tubal ligation, (x3 ), Appendectomy - Family History Family History: Reports: Unknown - Social History Smoking Status: Current every day smoker, Light tobacco smoker Hx Substance Use: No Alcohol Screening: Occasionally - Immunizations Tetanus Shot up to Date: Yes Physical Exam - Physical Exam Appearance: Ill-appearing, Well-nourished Ill-appearing: Mild Pain Distress: Mild Eyes: VIVIANA, EOMI, Conjunctiva clear ENT: Ears normal, Nose normal, Oropharynx normal Neck: Supple Respiratory: Airway patent, Breath sounds clear, Breath sounds equal, Respirations nonlabored Cardiovascular: RRR, Pulses normal, No rub, No murmur GI/: Soft, Nontender, No masses, Bowel sounds normal, No Organomegaly Musculoskeletal: Normal strength, ROM intact, No edema, No calf tenderness, Limited ROM (limited extension on the right upper ext on the 3rd 4th and 5th digits, Intact fextion.) Skin: Warm, Dry Neurological: Sensation intact, Reflexes intact, Cranial nerves intact, Alert, Oriented Psychiatric: Anxious Critical Care Note - Critical Care Note Total Time (mins): 0 Course - Course Vital Signs: Temp Pulse Resp BP Pulse Ox 06/26/17 21:06 98.6 F 96 H 20 122/89 96 Departure - Departure Time of Disposition: 22:00 Disposition: HOME SELF-CARE Discharge Problem: Hand pain, Cellulitis and abscess of finger, unspecified Instructions: Cellulitis (ED), Cubital Tunnel Syndrome (ED) Condition: Fair Pt referred to PMD for follow-up: Yes Additional Instructions: Follow up with PCP in 3 days for Neurology Referral for EMG continue your antibiotics as prescribed Allergies/Adverse Reactions: Allergies latex Adverse Reaction (Verified 06/26/17 21:15) Home Medications: Ambulatory Orders Atorvastatin Calcium [Lipitor] 10 mg PO BEDTIME 06/24/17 Gabapentin 300 mg PO BID 06/24/17 Hydrocodone/Acetaminophen [[place] 10-325 Tablet] 1 each PO Q8HR #12 tablet Risperidone [Risperdal] 0.5 mg PO DAILY 06/24/17 Sulfamethoxazole/Trimethoprim [Bactrim Ds Tablet] 1 each PO BID 7 Days #14 tablet 06/24/17 Disposition Discussed With: Patient, Family
== END 2017-06-26 22:10 | disposition home or self-care (01) ==
LOC: ED 21:06
DX: M79.641 Pain in right hand (principal); L03.011 Cellulitis of right finger; L03.311 Cellulitis of abdominal wall; F17.210 Nicotine dependence, cigarettes, uncomplicated
CPT/HCPCS: 99282

== ENCOUNTER 2017-11-29 19:48 | Emergency (ER) ==
[2017-11-29 19:51] VITALS: BP 125/82; TEMP 98.5; BMI 29.2
--- NOTE | 2017-11-29 20:04 | ED.PDOC ---
General ED Provider: Dr. ALENA LI-ER Chief Complaint: Non-specific Complaint Stated Complaint: my tooth really hurts Time Seen by Physician: 20:02 Mode of Arrival: Walk-In Information Source: Patient Exam Limitations: No limitations Primary Care Provider: JOSE DAVID BREAUX Nursing and Triage Documentation Reviewed and Agree: Yes Reviewed sepsis parameters & appropriate labs ordered?: Yes System Inflammatory Response Syndrome: Not Applicable Sepsis Protocol: For patient's 13 years and over: Temp is 96.8 and below OR 101 and greater Pulse >90 BPM Resp >20/minute Acutely Altered Mental Status Are patient's symptoms suggestive of a new infection, such as: -Pneumonia -Skin, Soft Tissue -Endocarditis -UTI -Bone, Joint Infection -Implantable Device -Acute Abdominal Infection -Wound Infection -Meningitis -Blood Stream Catheter Infection -Unknown EENT Complaint Exam - Dental/Oral Complaint/Exam Mechanism of Injury: No known trauma Onset/Duration: 6 weeks Symptoms Are: Still present Initial Severity: Mild Current Severity: Mild Location: right lower molar Character: Reports: Dull, Aching, Throbbing Associated Signs and Symptoms: Denies: Swelling, Discharge, Fever, Foul odor, Foul taste in mouth Cardiac Risk Factors: Reports: None Dental/Oral Surgical History: Reports: None Tooth Findings: Present: Percussion tenderness, Gross decay Cervical Lymphadenopathy Present: No Facial Swelling Present: No Bleeding Present: No Oropharynx Findings: Absent: Clots, Active bleeding Septal Hematoma: No Foreign Body Present: No Dysphagia Present: No Drooling Present: No Asymmetrical Tonsillar Swelling Present: No Uvula Midline: Yes Barbara-tonsillar Fluctuence: No Trismus Present: No Palatal Petechiae Present: No Scarlatinaform Rash Present: No Differential Diagnoses: Dental Abcess, Dental Caries, Fractured Tooth, Gingivitis Review of Systems - Review Of Systems Constitutional: Reports: No symptoms Eyes: Reports: No symptoms Ears, Nose, Mouth, Throat: Reports: Mouth pain Respiratory: Reports: No symptoms Cardiac: Reports: No symptoms GI: Reports: No symptoms : Reports: No symptoms Musculoskeletal: Reports: No symptoms Skin: Reports: No symptoms Neurological: Reports: No symptoms Endocrine: Reports: No symptoms Hematologic/Lymphatic: Reports: No symptoms All Other Systems: Reviewed and Negative Past Medical History - Past Medical History Previously Healthy: Yes Endocrine: Reports: Dyslipidemia Cardiovascular: Reports: None Respiratory: Reports: None Hematological: Reports: None Gastrointestinal: Reports: None Genitourinary: Reports: None Neuro/Psych: Reports: Anxiety, Depression, Bipolar Disorder Musculoskeletal: Reports: None Cancer: Reports: None Last Menstrual Period: 11/29/17 Other Pertinent Past Medical History: MRSA - Surgical History General Surgical History: Reports: Tubal ligation, , Appendectomy - Family History Family History: Reports: Unknown - Social History Smoking Status: Current every day smoker, Light tobacco smoker Hx Substance Use: No Alcohol Screening: Occasionally - Immunizations Tetanus Shot up to Date: Yes Physical Exam - Physical Exam Appearance: Well-appearing, No pain distress, Well-nourished Pain Distress: Mild Eyes: VIVIANA, EOMI, Conjunctiva clear ENT: Ears normal, Nose normal, Oropharynx normal (right lower molar is tender to palpation--surrounding gums erythematous and tender) Neck: Supple Respiratory: Airway patent Cardiovascular: RRR, Pulses normal, No rub, No murmur GI/: Soft, Nontender, No masses, Bowel sounds normal, No Organomegaly Musculoskeletal: Limited ROM Skin: Warm Neurological: Sensation intact, Motor intact, Reflexes intact, Cranial nerves intact, Alert, Oriented Psychiatric: Affect appropriate, Mood appropriate Critical Care Note - Critical Care Note Total Time (mins): 0 Course - Course Vital Signs: Temp Pulse Resp BP Pulse Ox 11/29/17 19:48 98.5 F 85 16 125/82 97 Departure - Departure Time of Disposition: 20:04 Disposition: HOME SELF-CARE Discharge Problem: Pain, dental Instructions: Toothache (ED) Condition: Good Pt referred to PMD for follow-up: Yes IPMP verified?: No Additional Instructions: amoxil 500mg tid x 7 days---norco 5mg q 6hrs prn pain #10--f/u dentist renata Allergies/Adverse Reactions: Allergies latex Adverse Reaction (Verified 06/26/17 21:15) Home Medications: Ambulatory Orders Atorvastatin Calcium [Lipitor] 10 mg PO BEDTIME 06/24/17 Gabapentin 300 mg PO BID 06/24/17 Disposition Discussed With: Patient
== END 2017-11-29 20:09 | disposition home or self-care (01) ==
LOC: ED 19:48
DX: K08.89 Other specified disorders of teeth and supporting structures (principal); K02.7 Dental root caries; F17.210 Nicotine dependence, cigarettes, uncomplicated
CPT/HCPCS: 99282

== ENCOUNTER 2018-01-31 02:01 | Emergency (ER) ==
[2018-01-31 02:14] VITALS: BP 123/80; TEMP 98; BMI 30.2
[2018-01-31] MEDS ORDERED: TORADOL IM STA (02:22)
--- NOTE | 2018-01-31 02:26 | ED.PDOC ---
General ED Provider: Dr. ALENA LI-ER Chief Complaint: Tooth Problem Stated Complaint: my tooth hurts Time Seen by Physician: 02:23 Mode of Arrival: Walk-In Information Source: Patient Exam Limitations: No limitations Primary Care Provider: JOSE DAVID BREAUX Nursing and Triage Documentation Reviewed and Agree: Yes Reviewed sepsis parameters & appropriate labs ordered?: Yes System Inflammatory Response Syndrome: Not Applicable Sepsis Protocol: For patient's 13 years and over: Temp is 96.8 and below OR 101 and greater Pulse >90 BPM Resp >20/minute Acutely Altered Mental Status Are patient's symptoms suggestive of a new infection, such as: -Pneumonia -Skin, Soft Tissue -Endocarditis -UTI -Bone, Joint Infection -Implantable Device -Acute Abdominal Infection -Wound Infection -Meningitis -Blood Stream Catheter Infection -Unknown EENT Complaint Exam - Dental/Oral Complaint/Exam Mechanism of Injury: No known trauma Onset/Duration: 24 hrrs Symptoms Are: Still present Timing: Constant Initial Severity: Mild Current Severity: Moderate Location: left upper molar Character: Reports: Dull, Aching, Throbbing Aggravating: Reports: Heat, Cold Alleviating: Reports: None Associated Signs and Symptoms: Denies: Swelling, Discharge, Fever, Foul odor, Foul taste in mouth Related History: Reports: Similar episode Dental/Oral Surgical History: Reports: None Tooth Findings: Present: Percussion tenderness, Gross decay Cervical Lymphadenopathy Present: No Facial Swelling Present: No Bleeding Present: No Oropharynx Findings: Absent: Clots, Active bleeding Septal Hematoma: No Foreign Body Present: No Dysphagia Present: No Asymmetrical Tonsillar Swelling Present: No Uvula Midline: Yes Barbara-tonsillar Fluctuence: No Trismus Present: No Palatal Petechiae Present: No Scarlatinaform Rash Present: No Differential Diagnoses: Dental Caries Review of Systems - Review Of Systems Constitutional: Reports: No symptoms Eyes: Reports: No symptoms Ears, Nose, Mouth, Throat: Reports: Mouth pain Respiratory: Reports: No symptoms Cardiac: Reports: No symptoms GI: Reports: No symptoms : Reports: No symptoms Musculoskeletal: Reports: No symptoms Skin: Reports: No symptoms Neurological: Reports: No symptoms Endocrine: Reports: No symptoms Hematologic/Lymphatic: Reports: No symptoms All Other Systems: Reviewed and Negative Past Medical History - Past Medical History Previously Healthy: Yes Endocrine: Reports: Dyslipidemia Cardiovascular: Reports: None Respiratory: Reports: None Hematological: Reports: None Gastrointestinal: Reports: None Genitourinary: Reports: None Neuro/Psych: Reports: Anxiety, Depression, Bipolar Disorder Musculoskeletal: Reports: None Cancer: Reports: None Last Menstrual Period: now Other Pertinent Past Medical History: MRSA - Surgical History General Surgical History: Reports: Tubal ligation, , Appendectomy - Family History Family History: Reports: Unknown - Social History Smoking Status: Current every day smoker, Light tobacco smoker Hx Substance Use: Yes (marijuana occasionally) Alcohol Screening: None - Immunizations Tetanus Shot up to Date: No (unsure) Physical Exam - Physical Exam Appearance: Well-appearing, No pain distress, Well-nourished Pain Distress: Mild Eyes: VIVIANA, EOMI, Conjunctiva clear ENT: Ears normal, Nose normal, Oropharynx normal (noted decay left upper molar) Neck: Supple Respiratory: Airway patent, Breath sounds clear, Breath sounds equal, Respirations nonlabored Cardiovascular: RRR GI/: Soft Musculoskeletal: Normal strength Skin: Warm, Dry, Normal color Neurological: Sensation intact Psychiatric: Affect appropriate, Mood appropriate Critical Care Note - Critical Care Note Total Time (mins): 0 Course - Course Orders, Labs, Meds: Orders Category Date Time Status Ketorolac Tromethamine [Toradol] MEDS 01/31/18 02:22 Stat 60 mg IM ONCE STA Medications Generic Name Dose Route Start Last Admin Trade Name Alexi PRN Reason Stop Dose Admin Ketorolac Tromethamine 60 mg 01/31/18 02:22 Toradol IM 01/31/18 02:23 ONCE STA Vital Signs: Temp Pulse Resp BP Pulse Ox 01/31/18 02:02 98 F 78 20 123/80 96 Departure - Departure Time of Disposition: 02:26 Disposition: HOME SELF-CARE Discharge Problem: Toothache Instructions: Toothache (ED) Condition: Good Pt referred to PMD for follow-up: Yes IPMP verified?: No Additional Instructions: augmentin 875mg bidx 7 days --norco 5mg q 4hr prn pain#6--f/u dentist Allergies/Adverse Reactions: Allergies latex Adverse Reaction (Verified 01/31/18 02:13) Home Medications: Ambulatory Orders Atorvastatin Calcium [Lipitor] 10 mg PO BEDTIME 06/24/17 Gabapentin 300 mg PO BID 06/24/17 Naproxen [Naprosyn] 500 mg PO BID PRN 01/31/18 Disposition Discussed With: Patient
== END 2018-01-31 02:45 | disposition home or self-care (01) ==
LOC: ED 02:01
DX: K08.89 Other specified disorders of teeth and supporting structures (principal); K02.7 Dental root caries; F17.210 Nicotine dependence, cigarettes, uncomplicated
CPT/HCPCS: 96372; 99282

== ENCOUNTER 2018-05-19 16:46 | Emergency (ER) ==
[2018-05-19 16:46] VITALS: BMI 29.2
[2018-05-19 16:54] VITALS: BP 129/88; TEMP 99.3
[2018-05-19] MEDS ORDERED: MORPHINE 2 MG/ML SYRINGE IM STA (17:03)
[2018-05-19] MEDS ORDERED: ZOFRAN 4 MG/2 ML IM STA (17:03)
[2018-05-19] MEDS ORDERED: LIDOCAINE HCL 1% SDV IM STA (17:03)
[2018-05-19] MEDS ORDERED: ROCEPHIN IM STA (17:03)
--- NOTE | 2018-05-19 17:14 | ED.PDOC ---
General ED Provider: Dr. NANCY WARREN Chief Complaint: Tooth Problem Stated Complaint: dental pain Time Seen by Physician: 17:00 Mode of Arrival: Walk-In Information Source: Patient Exam Limitations: No limitations Primary Care Provider: JOSE DAVID BREAUX Nursing and Triage Documentation Reviewed and Agree: Yes Does patient meet sepsis criteria?: No System Inflammatory Response Syndrome: Not Applicable Sepsis Protocol: For patient's 13 years and over: Temp is 96.8 and below OR 101 and greater Pulse >90 BPM Resp >20/minute Acutely Altered Mental Status Are patient's symptoms suggestive of a new infection, such as: -Pneumonia -Skin, Soft Tissue -Endocarditis -UTI -Bone, Joint Infection -Implantable Device -Acute Abdominal Infection -Wound Infection -Meningitis -Blood Stream Catheter Infection -Unknown EENT Complaint Exam - Dental/Oral Complaint/Exam Mechanism of Injury: Unknown Onset/Duration: 4 days Symptoms Are: Still present Timing: Constant Initial Severity: Moderate Current Severity: Moderate Character: Reports: Dull, Aching Aggravating: Reports: None Alleviating: Reports: None Associated Signs and Symptoms: Denies: Swelling, Discharge, Fever, Foul odor, Foul taste in mouth Related History: Reports: Similar episode Cardiac Risk Factors: Reports: None Dental/Oral Surgical History: Reports: None Tooth Findings: Present: Gross decay Cervical Lymphadenopathy Present: No Facial Swelling Present: Yes Bleeding Present: No Oropharynx Findings: Absent: Clots, Active bleeding Septal Hematoma: No Foreign Body Present: No Dysphagia Present: No Drooling Present: No Asymmetrical Tonsillar Swelling Present: Yes Uvula Midline: Yes Barbara-tonsillar Fluctuence: No Trismus Present: No Palatal Petechiae Present: No Scarlatinaform Rash Present: No Lesions: Absent: Lip, Gums, Tongue, Buccal Mucosa, Pharynx Exanthem: Absent: Lip, Gums, Tongue, Buccal Mucosa, Pharynx Vesicles: Absent: Lip, Gums, Tongue, Buccal Mucosa, Pharynx Teeth Picture: 1 - decay Differential Diagnoses: Fractured Tooth Review of Systems - Review Of Systems Constitutional: Reports: No symptoms Eyes: Reports: No symptoms Ears, Nose, Mouth, Throat: Reports: No symptoms Respiratory: Reports: No symptoms Cardiac: Reports: No symptoms GI: Reports: No symptoms : Reports: No symptoms Musculoskeletal: Reports: No symptoms Skin: Reports: No symptoms Neurological: Reports: No symptoms Endocrine: Reports: No symptoms Hematologic/Lymphatic: Reports: No symptoms All Other Systems: Reviewed and Negative Past Medical History - Past Medical History Previously Healthy: Yes Endocrine: Reports: Dyslipidemia Cardiovascular: Reports: None Respiratory: Reports: None Hematological: Reports: None Gastrointestinal: Reports: None Genitourinary: Reports: None Neuro/Psych: Reports: Anxiety, Depression, Bipolar Disorder Musculoskeletal: Reports: None Cancer: Reports: None Last Menstrual Period: 1 month Other Pertinent Past Medical History: MRSA - Surgical History General Surgical History: Reports: Tubal ligation, , Appendectomy - Family History Family History: Reports: Unknown - Social History Smoking Status: Current every day smoker, Light tobacco smoker Hx Substance Use: Yes (marijuana occasionally) Alcohol Screening: None Physical Exam - Physical Exam Appearance: Well-appearing, No pain distress, Well-nourished Eyes: VIVIANA, EOMI, Conjunctiva clear ENT: Ears normal, Nose normal, Oropharynx normal Respiratory: Airway patent, Breath sounds clear, Breath sounds equal, Respirations nonlabored Cardiovascular: RRR, Pulses normal, No rub, No murmur GI/: Soft, Nontender, No masses, Bowel sounds normal, No Organomegaly Musculoskeletal: Normal strength, ROM intact, No edema, No calf tenderness Skin: Warm, Dry, Normal color Neurological: Sensation intact, Motor intact, Reflexes intact, Cranial nerves intact, Alert, Oriented Psychiatric: Affect appropriate, Mood appropriate Critical Care Note - Critical Care Note Total Time (mins): 0 Course - Course Orders, Labs, Meds: Orders Category Date Time Status Ceftriaxone Sodium [Rocephin] MEDS 05/19/18 17:03 Discontinued 1 gm IM ONCE STA Lidocaine HCl/Pf [Lidocaine HCl 1% Sdv] MEDS 05/19/18 17:03 Discontinued 2.1 ml IM ONCE STA Morphine Sulfate [Morphine 2 mg/ml Syringe] MEDS 05/19/18 17:03 Discontinued 2 mg IM ONCE STA Ondansetron HCl/Pf [Zofran 4 mg/2 ml] MEDS 05/19/18 17:03 Discontinued 4 mg IM ONCE STA Medications Discontinued Medications Generic Name Dose Route Start Last Admin Trade Name Freq PRN Reason Stop Dose Admin Ceftriaxone Sodium 1 gm 05/19/18 17:03 Rocephin IM 05/19/18 17:04 ONCE STA Lidocaine HCl 2.1 ml 05/19/18 17:03 Lidocaine Hcl 1% Sdv IM 05/19/18 17:04 ONCE STA Morphine Sulfate 2 mg 05/19/18 17:03 Morphine 2 Mg/Ml Syringe IM 05/19/18 17:04 ONCE STA Ondansetron HCl 4 mg 05/19/18 17:03 Zofran 4 Mg/2 Ml IM 05/19/18 17:04 ONCE STA Vital Signs: Temp Pulse Resp BP Pulse Ox 05/19/18 16:48 99.3 F 115 H 20 129/88 98 Departure - Departure Time of Disposition: 17:15 Disposition: HOME SELF-CARE Discharge Problem: Toothache Instructions: Dental Abscess (ED) Condition: Good Pt referred to PMD for follow-up: Yes IPMP verified?: No Additional Instructions: AMOXICILLIN 500MG EVERY 8 HOURS FOR 7 DAYS #30 Prescriptions: Hydrocodone/Acetaminophen [[place] 10-325 Tablet] 1 each PO Q8HR #10 tablet Allergies/Adverse Reactions: Allergies latex Adverse Reaction (Verified 05/19/18 16:53) Home Medications: Ambulatory Orders Atorvastatin Calcium [Lipitor] 10 mg PO BEDTIME 06/24/17 Gabapentin 300 mg PO BID 06/24/17 Hydrocodone/Acetaminophen [[place] 10-325 Tablet] 1 each PO Q8HR #10 tablet Disposition Discussed With: Patient
== END 2018-05-19 17:53 | disposition home or self-care (01) ==
LOC: ED 16:46
DX: K08.89 Other specified disorders of teeth and supporting structures (principal); K00.0 Anodontia
CPT/HCPCS: 96372; 99282